=== PATIENT | female | born 1980 | race Caucasian/White ===

== ENCOUNTER 2019-03-17 07:00 | Day surgery (SDC) | payer OTHER ==
[2019-03-17] MEDS ORDERED: PROPOFOL 20 ML (09:39)
[2019-03-17] MEDS ORDERED: MEPERIDINE 100 MG INJ (09:39)
[2019-03-17] MEDS ORDERED: LIDOCAINE 2% (SDV) 5 ML INJ (09:39)
[2019-03-17] MEDS ORDERED: ONDANSETRON 4 MG INJ (09:39)
[2019-03-17] MEDS ORDERED: METOCLOPRAMIDE 10 MG INJ (09:39)
[2019-03-17] MEDS ORDERED: CEFAZOLIN 1 GM INJ (10:12)
[2019-03-17] MEDS ORDERED: FENTAnyl 50 MCG/ML VIAL IV ×3 (10:30)
[2019-03-17] MEDS ORDERED: METOCLOPRAMIDE 10 MG INJ IV (10:30)
[2019-03-17] MEDS ORDERED: MIDAZOLAM 1 MG/ML 2 ML INJ IV (10:30)
[2019-03-17] MEDS ORDERED: HYDROmorphONE 1 MG/5 ML IV SYRINGE IV ×2 (10:30)
[2019-03-17] MEDS ORDERED: OXYCODONE/ACETAMINOPHEN (5/325) TAB PO ×2 (10:30)
[2019-03-17] MEDS ORDERED: DIPHENHYDRAMINE 50 MG INJ IV (10:30)
[2019-03-17] MEDS ORDERED: MEPERIDINE 25 MG INJ IV (10:30)
[2019-03-17] MEDS ORDERED: ONDANSETRON 4 MG INJ IV (10:30)
[2019-03-17] MEDS: LACTATED RINGER'S 1,000 ML IV (11:26)
[2019-03-17] MEDS: HYDROmorphONE 1 MG/5 ML IV SYRINGE IV ×2 (11:26→11:31)
== END 2019-03-17 12:55 | disposition home or self-care (01) ==
LOC: SDS 07:00
DX: D25.0 Submucous leiomyoma of uterus (principal); N93.8 Other specified abnormal uterine and vaginal bleeding; E03.9 Hypothyroidism, unspecified; F32.9 Major depressive disorder, single episode, unspecified; R94.31 Abnormal electrocardiogram [ECG] [EKG]
CPT/HCPCS: 58563; 84703; 93005